=== PATIENT | female | born 1940 | race Caucasian/White ===

== ENCOUNTER 2022-07-25 17:46 | Emergency (ER) | payer MEDICARE, MEDICAID ==
[2022-07-25 18:32] LABS: BASOPHILS ABSOLUTE AUTO 0.02 10^3/uL (0.00-0.50); BASOPHILS PERCENT AUTO 0.3 % (0-1); EOSINOPHILS ABSOLUTE AUTO 0.12 10^3/uL (0.00-1.50); EOSINOPHILS PERCENT AUTO 1.8 % (0-6); HEMATOCRIT 40.9 % (37.0-47.0); HEMOGLOBIN 13.5 g/dL (12.0-16.0); LYMPHOCYTES ABSOLUTE AUTO 1.59 10^3/uL (0.60-5.00); LYMPHOCYTES PERCENT AUTO 23.4 % (24-44); MEAN CORPUSCULAR HEMOGLOBIN 27.1 pg (27.0-32.0); MEAN CORPUSCULAR VOLUME 82.1 fL (83.0-97.0); MONOCYTES ABSOLUTE AUTO 0.36 10^3/uL (0.00-1.50); MONOCYTES PERCENT AUTO 5.3 % (0-10); NEUTROPHILS ABSOLUTE AUTO 4.71 x10^3/uL (1.80-8.00); NEUTROPHILS PERCENT AUTO 69.2 % (41-71); PLATELET COUNT,PLT 235 10^3/uL (150-400); RED BLOOD CELL COUNT 4.98 x10^6/uL (4.00-5.50); WHITE BLOOD CELL COUNT,WBC 6.8 10^3/uL (4.0-11.0)
[2022-07-25 18:47] LABS: ALBUMIN 3.6 g/dL (3.4-5.0); BILIRUBIN TOTAL 0.5 mg/dL (0.0-1.0); CALCIUM 8.9 mg/dL (8.4-10.1); CREATININE 1.3 mg/dL (0.6-1.0); EST CRCL DRUG DOSING (CG) 25.93 mL/min; MAGNESIUM 2.1 mg/dL (1.8-2.4); POTASSIUM,K 3.6 mEq/L (3.5-5.0); PROTEIN TOTAL,TP 7.2 g/dL (6.4-8.2)
[2022-07-25 18:52] LABS: INR 0.96 (0.92-1.18); PROTHROMBIN TIME 9.9 SEC (9.3-11.3); PTT,PARTIAL THROMBOPLSTIN TIME 25.6 SEC (20.0-30.0)
[2022-07-25] MEDS: Aspirin 325 MG Tab PO ONE ×2 (18:53→21:40)
[2022-07-25] MEDS: Sodium Chloride 0.9% 500 ML IV SCH (19:01)
[2022-07-25 19:04] LABS: D-DIMER QUANTITATIVE 0.89 (0.00-0.50)
[2022-07-25] MEDS: Albuterol/Ipratropium 3.0-0.5 MG/3 ML Neb Soln NEB ONE (21:37)
[2022-07-25] MEDS: cefTRIAXone 2 GM Vial IVPUSH ONE (21:39)
[2022-07-25] MEDS: Dexamethasone 4 MG/ML SDV IVPUSH ONE (21:39)
[2022-07-25] MEDS: Dexamethasone 4 MG/ML SDV ONE (21:52)
[2022-07-25] MEDS: Enoxaparin 60 MG/0.6 ML Syringe SUBCUT ONE (22:10)
== END 2022-07-25 22:30 | disposition left against medical advice (07) ==
LOC: CC.ED 17:46
DX: J18.9 Pneumonia, unspecified organism (principal); J90 Pleural effusion, not elsewhere classified
CPT/HCPCS: 36415; 71045; 80053; 83735; 84484; 85025; 85379; 85610; 85730; 93005; 93010; 94640; 96361; 96372; 96374; 96375; 99284; 99285-25; A9270-GY; J0696; J1100; J1650; J7040; J7620-GY

== ENCOUNTER 2022-11-03 14:23 | Inpatient (IN) | payer MEDICARE, MEDICAID ==
[2022-11-03] MEDS ORDERED: Sodium Chloride 0.9% 10 ML Syringe FLUSH PRN (14:25)
[2022-11-03] MEDS ORDERED: Aspirin 81 MG Tab.Chew PO ONE (14:25)
[2022-11-03 14:50] LABS: BASOPHILS ABSOLUTE AUTO 0.02 10^3/uL (0.00-0.50); BASOPHILS PERCENT AUTO 0.3 % (0-1); EOSINOPHILS ABSOLUTE AUTO 0.04 10^3/uL (0.00-1.50); EOSINOPHILS PERCENT AUTO 0.5 % (0-6); HEMATOCRIT 34.6 % (37.0-47.0); HEMOGLOBIN 11.8 g/dL (12.0-16.0); IMMATURE GRAN ABSOLUTE AUTO 0.03 10^3/uL (0.00-0.49); IMMATURE GRAN PERCENT AUTO 0.4 % (0.0-4.9); LYMPHOCYTES ABSOLUTE AUTO 0.88 10^3/uL (0.60-5.00); LYMPHOCYTES PERCENT AUTO 11.1 % (24-44); MEAN CORPUSCULAR HEMOGLOBIN 28.4 pg (27.0-32.0); MEAN CORPUSCULAR HGB CONC 34.1 g/dL (32.0-36.0); MEAN CORPUSCULAR VOLUME 83.4 fL (83.0-97.0); MONOCYTES ABSOLUTE AUTO 0.78 10^3/uL (0.00-1.50); MONOCYTES PERCENT AUTO 9.8 % (0-10); NEUTROPHILS PERCENT AUTO 77.9 % (41-71); PLATELET COUNT,PLT 285 10^3/uL (150-400); RED BLOOD CELL COUNT 4.15 x10^6/uL (4.00-5.50)
[2022-11-03 14:59] LABS: INR 1.1 (0.92-1.18); PROTHROMBIN TIME 11.3 SEC (9.3-11.3)
[2022-11-03 15:06] LABS: ALBUMIN 3.3 g/dL (3.4-5.0); BILIRUBIN TOTAL 0.7 mg/dL (0.0-1.0); CALCIUM 8.7 mg/dL (8.4-10.1); CREATININE 1.2 mg/dL (0.6-1.0); EST CRCL DRUG DOSING (CG) 29.25 mL/min; MAGNESIUM 2.3 mg/dL (1.8-2.4); POTASSIUM,K 3.4 mEq/L (3.5-5.0); PROTEIN TOTAL,TP 6.7 g/dL (6.4-8.2)
[2022-11-03] MEDS ORDERED: LORazepam 2 MG/ML SDV IVPUSH ONE (15:10)
[2022-11-03] MEDS ORDERED: Sodium Chloride 1 GM Tab PO ONE (15:13)
[2022-11-03] MEDS ORDERED: Ondansetron 4 MG/2 ML SDV IV PRN (17:18)
[2022-11-03] MEDS ORDERED: Acetaminophen 325 MG Tab PO PRN (17:18)
[2022-11-03] MEDS ORDERED: Albuterol/Ipratropium 3.0-0.5 MG/3 ML Neb Soln NEB PRN (17:18)
[2022-11-03] MEDS ORDERED: Pantoprazole 40 MG Vial IVPUSH SCH (17:30)
[2022-11-03] MEDS ORDERED: Sodium Chloride 0.9% 1,000 ML IV SCH (17:30)
[2022-11-03 17:58] LABS: APPEARANCE,URINE CLEAR (CLEAR); BILIRUBIN,URINE NEGATIVE (NEGATIVE); COLOR,URINE YELLOW (YELLOW); GLUCOSE,URINE NEGATIVE (NEGATIVE); KETONES,URINE NEGATIVE (NEGATIVE); LEUKOCYTE ESTERASE,URINE NEGATIVE (NEGATIVE); NITRITE,URINE NEGATIVE (NEGATIVE); OCCULT BLOOD,URINE NEGATIVE (NEGATIVE); PH,URINE 5.5 (4.5-8.0); PROTEIN,URINE NEGATIVE (NEGATIVE); UROBILINOGEN,URINE 0.2 EU/dL (0.2-1.0)
[2022-11-03 20:16] LABS: CALCIUM 8.7 mg/dL (8.4-10.1); CREATININE 1.2 mg/dL (0.6-1.0); EST CRCL DRUG DOSING (CG) 29.25 mL/min; POTASSIUM,K 3.9 mEq/L (3.5-5.0)
[2022-11-03] MEDS ORDERED: Haloperidol Lactate 5 MG/ML SDV IM ONE (20:40)
[2022-11-03] MEDS ORDERED: LORazepam 2 MG/ML SDV IVPUSH PRN (23:12)
[2022-11-03] MEDS ORDERED: Bumetanide 2.5 MG/10 ML MDV IVPUSH ONE (23:17)
[2022-11-03] MEDS ORDERED: Levofloxacin/Dextrose 5%-Water 500 MG in Premix Bag 1 BAG IV ONE (23:21)
[2022-11-04 00:19] LABS: CALCIUM 8.2 mg/dL (8.4-10.1); CREATININE 1.2 mg/dL (0.6-1.0); EST CRCL DRUG DOSING (CG) 29.25 mL/min
[2022-11-04 00:21] LABS: POTASSIUM,K 2.8 mEq/L (3.5-5.0)
[2022-11-04] MEDS ORDERED: Potassium Chloride 10 MEQ Tab.ER PO ONE ×2 (00:37→07:05)
[2022-11-04 04:08] LABS: CALCIUM 8.5 mg/dL (8.4-10.1); CREATININE 1.2 mg/dL (0.6-1.0); EST CRCL DRUG DOSING (CG) 29.25 mL/min; POTASSIUM,K 3.2 mEq/L (3.5-5.0)
[2022-11-04] MEDS ORDERED: Levothyroxine 50 MCG Tab PO SCH (07:00)
[2022-11-04] MEDS ORDERED: Metoprolol Succinate 25 MG Tab.ER PO SCH (08:00)
[2022-11-04 08:42] LABS: BASOPHILS ABSOLUTE AUTO 0.02 10^3/uL (0.00-0.50); BASOPHILS PERCENT AUTO 0.3 % (0-1); EOSINOPHILS ABSOLUTE AUTO 0.09 10^3/uL (0.00-1.50); EOSINOPHILS PERCENT AUTO 1.4 % (0-6); HEMATOCRIT 35.6 % (37.0-47.0); HEMOGLOBIN 11.8 g/dL (12.0-16.0); IMMATURE GRAN ABSOLUTE AUTO 0.02 10^3/uL (0.00-0.49); IMMATURE GRAN PERCENT AUTO 0.3 % (0.0-4.9); LYMPHOCYTES ABSOLUTE AUTO 1.54 10^3/uL (0.60-5.00); LYMPHOCYTES PERCENT AUTO 23.4 % (24-44); MEAN CORPUSCULAR HEMOGLOBIN 28.2 pg (27.0-32.0); MEAN CORPUSCULAR HGB CONC 33.1 g/dL (32.0-36.0); MEAN CORPUSCULAR VOLUME 85.2 fL (83.0-97.0); MONOCYTES ABSOLUTE AUTO 0.71 10^3/uL (0.00-1.50); MONOCYTES PERCENT AUTO 10.8 % (0-10); NEUTROPHILS PERCENT AUTO 63.8 % (41-71); PLATELET COUNT,PLT 237 10^3/uL (150-400); RED BLOOD CELL COUNT 4.18 x10^6/uL (4.00-5.50); WHITE BLOOD CELL COUNT,WBC 6.6 10^3/uL (4.0-11.0)
[2022-11-04 08:58] LABS: CALCIUM 8.7 mg/dL (8.4-10.1); CREATININE 1.2 mg/dL (0.6-1.0); EST CRCL DRUG DOSING (CG) 32.28 mL/min; POTASSIUM,K 3.3 mEq/L (3.5-5.0)
[2022-11-04] MEDS ORDERED: Potassium Chloride 10 MEQ Tab.ER PO SCH (17:30)
[2022-11-04] MEDS ORDERED: Levofloxacin/Dextrose 5%-Water 750 MG in Premix Bag 1 BAG IV SCH (20:00)
== END 2022-11-04 16:10 | DRG 640 ==
LOC: CC.ED 14:23 → CC.MS 17:53 → UNDOADMIN 17:53 → CC.MS 11-04 13:57
PROVIDERS: ADMIT Family Medicine; ATTEND Family Medicine
DX: E87.1 Hypo-osmolality and hyponatremia (principal); J18.9 Pneumonia, unspecified organism; J90 Pleural effusion, not elsewhere classified; N17.9 Acute kidney failure, unspecified; E03.9 Hypothyroidism, unspecified; I44.7 Left bundle-branch block, unspecified; R41.0 Disorientation, unspecified; I50.9 Heart failure, unspecified; Z66 Do not resuscitate; Z79.890 Hormone replacement therapy; Z79.899 Other long term (current) drug therapy
CPT/HCPCS: 36415; 70450; 71045; 80048; 80053; 81003; 83605; 83690; 83735; 83880; 84484; 85025; 85610; 87040; 87899; 93005; 96374; 99285-25; A9270-GY; C9113; J1630; J1956; J2060; J3490; J7030